=== PATIENT | male | born 1975 | race Caucasian/White ===

== ENCOUNTER 2018-05-13 09:52 | Emergency (ER) | payer BC, OTHER ==
[2018-05-13 10:14] VITALS: BP 123/85; PULSE 66; TEMP 98.4; BMI 33.5
--- NOTE | 2018-05-13 10:16 | PDOC ---
History of Present Illness - General Chief Complaint: Respiratory Stated Complaint: BRONCHITIS Time Seen by Provider: 05/13/18 10:04 - History of Present Illness Initial Comments: 05/13/18 10:19 43-year-old male with no significant past medical history who presents to the emergency department with 3 weeks of cough. Patient reports a nagging cough with frequent fits and productive yellow sputum. He was put on Levaquin on May 07 and states since then, the coughing fits have improved but he presents today because he has a persistent cough. He notes that when he has a particularly bad coughing fit feels short of breath which is new over the last 2 days. Patient quit smoking one week ago due to the cough. He reports that he has not had a chest x-ray yet and is interested in one here in the emergency department. Denies CP. Denies fevers, chills. Has not tried any medications other than the Levaquin. Denies headache, dizziness, focal weakness or numbness. Denies abdominal pain, nausea, vomiting, diarrhea. Denies lower extremity edema. Denies immobility or recent travel. Past History - Past Medical History Allergies/Adverse Reactions: Allergies Allergy/AdvReac Type Severity Reaction Status Date / Time No Known Allergies Allergy Verified 05/13/18 10:03 Home Medications: Ambulatory Orders Levofloxacin [Levaquin] 500 mg PO DAILY 05/13/18 Review of Systems - Review of Systems Comments:: 05/13/18 10:29 GENERAL/CONSTITUTIONAL: No fever or chills. No weakness. HEAD, EYES, EARS, NOSE AND THROAT: No change in vision. No ear pain or discharge. No sore throat. GASTROINTESTINAL: No nausea, vomiting, diarrhea or constipation. GENITOURINARY: No dysuria, frequency, or change in urination. CARDIOVASCULAR: No chest pain, +shortness of breath. RESPIRATORY: +cough, no wheezing, or hemoptysis. MUSCULOSKELETAL: No joint or muscle swelling or pain. No neck or back pain. SKIN: No rash NEUROLOGIC: No headache, vertigo, loss of consciousness, or change in strength/ sensation. ENDOCRINE: No increased thirst. No abnormal weight change. HEMATOLOGIC/LYMPHATIC: No anemia, easy bleeding, or history of blood clots. ALLERGIC/IMMUNOLOGIC: No hives or skin allergy. *Physical Exam - Physical Exam Comments: 05/13/18 10:29 GENERAL: Awake, alert, and fully oriented, in no acute distress. Sounds congested when speaking HEAD: No signs of trauma EYES: PERRLA, EOMI, sclera anicteric, conjunctiva clear ENT: Auricles normal inspection, nares patent, oropharynx clear without exudates. Moist mucosa. Post OP with evidence of post-nasal drip NECK: Normal ROM, supple, no lymphadenopathy, JVD, or masses LUNGS: Breath sounds equal, clear to auscultation bilaterally. No wheezes, and +fine crackles at L lung base HEART: Regular rate and rhythm, normal S1 and S2, no murmurs, rubs or gallops ABDOMEN: Soft, nontender, normoactive bowel sounds. No guarding, no rebound. No masses EXTREMITIES: Normal range of motion, no edema. No clubbing or cyanosis. No cords, erythema, or tenderness NEUROLOGICAL: Normal speech, cranial nerves intact, 5/5 strength in all 4 extremities, normal sensation to light touch in all 4 extremities, normal gait SKIN: +diffuse lichenefied violacious papules coalescing into plaques on LE, consistent with psoriasis (pt reports hx) Heart Score/ECG Review - History History: Slightly suspicious - Electrocardiogram EKG: Normal - Age Age: </= 45 - Risk Factors Risk Factors Heart Score: Yes Smoking History Based on the list above the patient has:: 1-2 risk factors - Troponin Troponin: </= normal limit - Score Heart Score - Total: 1 #1 05/13/18 10:33 Twelve-lead EKG was performed and reviewed by me. Normal sinus rhythm, rate 62. Normal axis and intervals. No ST elevations or T-wave inversions. ED Treatment Course - LABORATORY CBC & Chemistry Diagram: 05/13/18 10:35 05/13/18 10:35 Medical Decision Making - Medical Decision Making 05/13/18 10:33 43-year-old male with a history of smoking, psoriasis (not on medications close (presents emergency Department with 3 weeks of cough and now shortness of breath since yesterday when coughing. Vitals are within normal limits with normal O2 sat. Exam with fine crackles at the left lung base. Differential includes but not limited to pneumonia versus bronchitis. Unlikely ACS but given new SOB, will check basic labs and troponin. EKG is nonischemic. Plan: -saline neb -CXR -labs -reassess 05/13/18 11:52 Pt feeling much better, resting in bed w/o sxs labs wnl CXR clear with no PNA Likely bronchitis Pt well appearing, requests DC home I discussed the physical exam findings, ancillary test results and final diagnoses with the patient. I answered all of the patient's questions. The patient was satisfied with the care received and felt comfortable with the discharge plan and treatment plan. The patient will call their primary care physician within 24 hours to arrange follow-up and will return to the Emergency Department with any new, persistent or worsening symptoms. *DC/Admit/Observation/Transfer Diagnosis at time of Disposition: Cough - Discharge Dispostion Disposition: HOME Condition at time of disposition: Good Decision to Admit order: No - Referrals Referrals: Sean Lezama [Primary Care Provider] - - Patient Instructions Printed Discharge Instructions: DI for Acute Bronchitis Additional Instructions: Follow up with your primary doctor in 1-2 days. Return to the emergency department if you have any new, worsening, or concerning symptoms. - Post Discharge Activity - Attestations Physician Attestion: 05/13/18 11:53 I, Dr. Agatha Doran MD, attest that this document has been prepared under my direction and personally reviewed by me in its entirety. I further attest, that it accurately reflects all work, treatment, procedures and medical decision -making performed by me.
[2018-05-13] MEDS ORDERED: SODIUM CHLORIDE FOR INHALATION 3 ML VIAL.NEB IH ONE (10:18)
[2018-05-13 11:04] LABS: MCHC 33.2 g/dl (32.0-35.9)
[2018-05-13 11:08] LABS: ALK PHOS 67 U/L (32-92); ANION GAP 6 MMOL/L (8-16); BASO % 1.1 % (0-2.0); BILIRUBIN,TOTAL 0.7 mg/dl (0.2-1.0); BLOOD UREA NITROGEN 12 mg/dl (7-18); CALCIUM 9.2 mg/dl (8.4-10.2); CHLORIDE 102 mmol/L (98-107); CO2 27 mmol/L (22-28); EOS % 1.6 % (0-4.5); GLUCOSE,RANDOM 88 mg/dl (74-106); HEMATOCRIT 50.8 % (35.4-49); HEMOGLOBIN 16.9 GM/dl (11.7-16.9); LYMPH % 23.4 % (8-40); MCH 30.8 pg (25.7-33.7); MEAN CELL VOLUME 92.8 fl (80-96); MEAN PLT VOLUME 7.6 fl (7.5-11.1); MONO % 5.9 % (3.8-10.2); PLATELET COUNT 266 K/MM3 (134-434); POTASSIUM 4.4 mmol/L (3.5-5.1); RBC 5.47 M/mm3 (4.00-5.60); RDW 12.9 % (11.9-15.9); SGOT/AST 21 U/L (10-42); SGPT/ALT 24 U/L (10-40); SODIUM 135 mmol/L (136-145); TOT PROT 7.5 g/dl (6.4-8.3); WHITE BLOOD COUNT 11.9 K/mm3 (4.0-10.8)
--- NOTE | 2018-05-15 11:43 | EKG ---
Test Reason : Blood Pressure : / mmHG Vent. Rate : 062 BPM Atrial Rate : 062 BPM P-R Int : 144 ms QRS Dur : 088 ms QT Int : 394 ms P-R-T Axes : 045 036 036 degrees QTc Int : 399 ms NORMAL SINUS RHYTHM NORMAL ECG NO PREVIOUS ECGS AVAILABLE Confirmed by FATUMA POOL MD ([id number]) on 05/15/2018 11:42:55 AM Referred By: Confirmed By:FATUMA POOL MD
== END 2018-05-13 11:58 | disposition home or self-care (01) ==
LOC: FER 09:52
PROC: 3E0F7GC Introduction of Other Therapeutic Substance into Respiratory Tract, Via Natural or Artificial Opening (ICD-10-PCS; principal; 2018-05-13)
DX: R05 Cough (principal)
CPT/HCPCS: 36415; 71046-TC-FY; 80053; 84484; 85025; 93005; 99282-25